=== PATIENT | female | born 1985 | race Caucasian/White ===

== ENCOUNTER 2020-03-08 20:32 | Emergency (ER) | payer OTHER, SELFPAY ==
--- NOTE | ~2020-03-08 | XR_ITS ---
o XR finger 2nd LT min 2V 03/08/2020 20:59 Indication: Left second finger pain Procedure: 4 views left second finger Comparison: No prior studies for comparison. Findings: There is a tuft fracture left second distal phalanx. No other fracture. Mild soft tissue sw elling. No foreign bodies. Impression: 1: Tuft fracture left second distal phalanx. Reviewed, dictated and finalized at location A. Impression: 1: Tuft fracture left second distal phalanx.
[2020-03-08 20:34] VITALS: BP 153/106; PULSE 83; RESP 18; TEMP 37; O2SAT 99
--- NOTE | 2020-03-08 20:48 | ED.UPPEXIN ---
HPI - Extremity Injury (Upper) General Chief Complaint: Extremity Injury, Upper Stated Complaint: L INDEX FINGER LAC Time Seen by Provider: 03/08/20 20:42 Source: patient History of Present Illness HPI narrative: The car door closed ON the terminal phalanx of the left index 11 AM today. Related Data Allergies Allergy/AdvReac Type Severity Reaction Status Date / Time latex Allergy Verified 04/23/13 17:44 morphine Allergy Verified 04/23/13 17:44 Penicillins Allergy Verified 04/23/13 17:44 Review of Systems Review of Systems: Narrative: CONSTITUTIONAL: Denies fever, chills, or sweats. EYES: Denies visual changes, redness, or discharge. ENT: Denies rhinorrhea, congestion, sore throat, or otalgia. CARDIOVASCULAR: Denies chest pain, palpitations, or edema. RESPIRATORY: Denies cough or dyspnea. GASTROINTESTINAL: Denies abdominal pain, nausea, vomiting, or diarrhea. GENITOURINARY: Denies dysuria or hematuria. SKIN: Denies rash or itching. MUSCULOSKELETAL: Denies back pain, joint pain, or myalgia. NEUROLOGIC: Denies headache, numbness, or weakness. PSYCHIATRIC: Denies anxiety or depression. Exam Narrative: Exam Narrative: General appearance: Well-developed, well-nourished Skin: Normal color. Left index showed swelling, bruising of the terminal phalanX, intact nail Head: Normocephalic, nontraumatic Abdomen: Soft, nontender, no organomegaly, quiet bowel sounds Vascular: Normal peripheral pulses, normal capillary refill. Musculoskeletal: Normal range of motion, nontender back Neurologic: Alert and oriented ?3, [employer]ING [employer] is normal as tested, no gross motor deficit Course Course Emergency Course: Stable Vital Signs Vital signs: Vital Signs Temperature 37.0 C 03/08/20 20:34 Pulse Rate 83 03/08/20 20:34 Respiratory Rate 18 03/08/20 20:34 Blood Pressure 153/106 H 03/08/20 20:34 Pulse Oximetry 99 03/08/20 20:34 Temperature 37.0 C 03/08/20 20:34 Pulse Rate 83 03/08/20 20:34 Respiratory Rate 18 03/08/20 20:34 Blood Pressure 153/106 H 03/08/20 20:34 Pulse Oximetry 99 03/08/20 20:34 MDM - Extremity Injury (Upper) MDM Narrative Medical decision making narrative: Terminal phalanx fracture/hematoma is my concern. X-ray ordered. Ibuprofen 800 mg plus Jackson 325 ordered. Further plan to follow Critical Care Time Critical Care Time Critical Care Time: No Discharge Plan Discharge Clinical Impression: Finger fracture, left Qualifiers: Encounter type: initial encounter Finger: index finger Fracture type: closed Phalanx: distal Fracture alignment: nondisplaced Qualified Code(s): S62.661A - Nondisplaced fracture of distal phalanx of left index finger, initial encounter for closed fracture Patient Disposition: Home, Self-Care Condition: Stable Instructions: Finger Fracture (ED) Additional Instructions: Return if symptoms are worsening , call Dr. Kenny for appointment, take Tylenol as as needed for aches and pain, continue home medications. Prescriptions: New hydrocodone-acetaminophen [Jackson] 5-325 mg tablet 1 tablet PO Q6H PRN (Reason: pain) Qty: 14 RF: 0 Follow-up/Referrals: PHYSICIAN,TOP CUTTER [Primary Care Provider] - Jayme Kenny MD [Physician] - 03/10/20
[2020-03-08 21:37] VITALS: BP 153/93; PULSE 88; RESP 20; TEMP 37.2; O2SAT 97
[2020-03-08] MEDS: IBUPROFEN 400 MG TABLET 800 MG PO (21:39)
== END 2020-03-08 21:52 | disposition home or self-care (01) ==
PROVIDERS: Emergency Provider Emergency Medicine
DX: S62.631A Displaced fracture of distal phalanx of left index finger, initial encounter for closed fracture (principal); W23.0XXA Caught, crushed, jammed, or pinched between moving objects, initial encounter
CPT/HCPCS: 29130; 73140; 99284; A9270

== ENCOUNTER 2020-04-01 00:55 | Emergency (ER) | payer OTHER, SELFPAY ==
--- NOTE | ~2020-04-01 | CT_ITS ---
EXAMINATION: CT abdomen pelvis w con EXAM DATE: 04/01/2020 05:21 INDICATION: Abdominal pain, intractable vomiting. TECHNIQUE: Spiral CT of the abdomen and pelvis was performed following intravenous injection of 100 m L Omnipaque 350. Axial, coronal and sagittal images were reviewed. The dose-length product (DLP) fo r this examination was 852.53 mGy-cm. The exposure was tailored according to patient size (auto mA e xposure control), and iterative reconstruction (ASIR) was used as additional dose reduction technique . There is no prior study for comparison. FINDINGS: The liver, spleen, adrenal glands and pancreas are unremarkable. Gallbladder is unremarkab le. No biliary obstruction. Portal and splenic veins are patent. Kidneys enhance symmetrically. T here is no hydronephrosis. There is a right renal cyst measuring 1.7 cm. The uterus is anteverted an d morphologically normal. Small amount of free pelvic fluid probably from recently ruptured physiolog ic cyst. The bladder is unremarkable. There is no retroperitoneal or pelvic lymphadenopathy. The appendix is normal. The stomach and small bowel are unremarkable. There is expected amount of c olonic stool. No free intraperitoneal gas. The heart is normal in size. There are no pericardial or pleural effusions. The lung bases are unremarkable. Bilateral L5 spondylolysis with a few emiliano meters anterolisthesis L5 on S1. IMPRESSION: 1. No acute intra-abdominal findings. 2. L5 spondylolysis, grade 1 anterolisthesis. Reviewed, dictated and finalized at location A.
[2020-04-01 01:28] VITALS: BP 175/92; PULSE 72; RESP 22; TEMP 37.3; O2SAT 99
[2020-04-01 01:53] LABS: Basophils Percent Auto 0.1 % (0.2-1.2); Hemoglobin 14.3 g/dL (12.0-15.0); Immature Granulocyte Absolute 0.03 K/mm3 (0.00-0.031); Immature Granulocyte Percent A 0.4 % (0-0.5); Lymphocytes Absolute Auto 1.49 K/mm3 (0.9-3.2); Lymphocytes Percent Auto 17.5 % (18.3-44.2); Mean Corpuscular HGB Conc 35.8 g/dl (32-36); Mean Corpuscular Hemoglobin 32.5 pg (26-34); Mean Corpuscular Volume 90.9 fl (80-100); Mean Platelet Volume 10.6 fl (7.4-10.4); Monocytes Percent Auto 11.2 % (2.6-8.5); Neutrophils Percent Auto 70.8 % (45.5-73.1); Platelet Count Result 271 k/mm3 (150-375); White Blood Count 8.5 K/mm3 (4.5-10.0)
[2020-04-01 02:09] LABS: Alanine Aminotransferase 20 U/L (4-35); Albumin Level 4.9 g/dL (3.5-5.1); Alkaline Phosphatase 71 U/L (38-126); Anion Gap 13 mmol/L (8-16); Aspartate Amino Transferase 39 U/L (14-36); Bilirubin,Total 0.6 mg/dL (0.2-1.3); Blood Urea Nitrogen 13 mg/dL (7-17); Calcium 9.8 mg/dL (8.4-10.2); Carbon Dioxide 23 mmol/L (22-30); Chloride 101 mmol/L (98-107); Estimated CRCL calculation 86 ml/min; Estimated Glomerular Filt Rate > 60; Glucose 121 mg/dL (65-105); Lipase 55 U/L (23-300); Potassium 3.1 mmol/L (3.4-5.0); Sodium 137 mmol/L (137-145)
[2020-04-01] MEDS: ONDANSETRON INJ 4 MG/2 ML VIAL IV PUSH (03:39)
[2020-04-01] MEDS: SODIUM CHLORIDE 0.9% IV 1,000 ML 999 ML IV CONT (03:39)
--- NOTE | 2020-04-01 03:39 | ED.ABDPAIN ---
HPI - Abdominal Pain General Chief Complaint: Abdominal Pain Stated Complaint: n/v abd pain Time Seen by Provider: 04/01/20 03:37 Source: patient Mode of arrival: ambulatory Limitations: no limitations History of Present Illness HPI narrative: Patient is a 35-year-old female with a history of hypertension, irritable bowel syndrome who presents for evaluation of abdominal pain. Patient reports a 72-hour history of worsening abdominal pain, located throughout her abdomen described as sharp, aching in nature, intermittently stabbing in nature with radiation to her back. Patient reports numerous episodes of nonbloody, nonbilious emesis. She reports decreased oral intake over the past 72 hours. She reports decreased urination due to dehydration. Patient states she has never had abdominal pain like this before. She does report some diarrhea without blood present or mucus. Related Data Allergies Allergy/AdvReac Type Severity Reaction Status Date / Time latex Allergy Rash Verified 03/08/20 21:43 morphine Allergy Rash Verified 03/08/20 21:43 Penicillins Allergy Rash Verified 03/08/20 21:43 Review of Systems Review of Systems: Narrative: CONSTITUTIONAL: Denies fever, chills ENT: Denies rhinorrhea, congestion, sore throat, or otalgia. CARDIOVASCULAR: Denies chest pain, palpitations, or edema. RESPIRATORY: Denies cough or dyspnea. GASTROINTESTINAL: Reports abdominal pain, nausea, vomiting and diarrhea GENITOURINARY: Denies dysuria or hematuria. SKIN: Denies rash or itching. MUSCULOSKELETAL: Denies back pain, joint pain, or myalgia. NEUROLOGIC: Denies headache, numbness, or weakness. PSYCHIATRIC: Denies anxiety or depression. [facility] Past Medical History Medical History (Updated 04/01/20 @ 06:56 by Megan Valdez MD) Delivery with history of Hypertension Irritable bowel syndrome Social History Social History (Updated 04/01/20 @ 03:53 by Megan Valdez MD) Smoking status: Current every day smoker Substance use: never Living arrangements: with family Gender identity (if verbalized by the patient): Female Exam Narrative: Exam Narrative: GENERAL: Eyes closed on bed, moaning, uncomfortable appearing HEAD: Normocephalic, atraumatic. EYES: PERRLA and EOMI. ENT: Nares clear, no rhinorrhea or epistaxis. Mucous membranes dry NECK: Supple. CHEST: No respiratory distress, breathing even and non labored HEART: Regular rate, sinus rhythm ABDOMEN:Non distended, tender abdomen throughout, positive guarding EXTREMITIES: Normal range of motion. No edema. SKIN: Warm, dry, no rash. NEURO:No focal deficits. Alert and oriented x3 Course Vital Signs Vital signs: Vital Signs Temperature 37.3 C 04/01/20 01:28 Pulse Rate 72 04/01/20 01:28 Respiratory Rate 22 H 04/01/20 01:28 Blood Pressure 175/92 H 04/01/20 01:28 Pulse Oximetry 99 04/01/20 01:28 Temperature 37.3 C 04/01/20 01:28 Pulse Rate 72 04/01/20 01:28 Respiratory Rate 22 H 04/01/20 01:28 Blood Pressure 175/92 H 04/01/20 01:28 Pulse Oximetry 99 04/01/20 01:28 MDM - Abdominal Pain MDM Narrative Medical decision making narrative: Patient presenting for evaluation of nausea, vomiting, abdominal pain and diarrhea. At the time of assessment, patient is nauseated, was given IV fluids, antiemetic and pain medication with good improvement in her symptoms. Laboratory results show no leukocytosis. No electrolyte derangement. No acute kidney injury. Elevation in lipase, hyperbilirubinemia, transaminitis to be suggestive of acute biliary process or biliary obstruction. I do not feel that urinalysis is consistent with UTI. Patient without any vaginal bleeding or discharge. There is evidence of some free physiologic fluid in the pelvis which may be due to a ruptured cyst. Patient symptoms are not consistent with ovarian torsion. No findings concerning for PID or suprapubic tenderness at the time of reassessment. Patient did have border
[2020-04-01 04:51] LABS: Add Urine Microscopic? YES; Appearance Urine Cloudy (Clear); Bacteria Urine Trace /hpf; Bilirubin Urine Negative (Negative); Blood Urine 1+ (Negative); Color Urine Yellow (Yellow); Glucose Urine UA Negative (Negative); Ketones Urine Trace mg/dL (Negative); Leukocyte Esterase Ur Trace LEU/UL (Negative); Mucus Urine Moderate /lpf; Nitrate Urine Negative (Negative); Protein Urine 1+ mg/dL (Negative); Specific Grav Ur 1.024 (1.001-1.035); Squamous Epithelial Cell Urine Few /hpf (Few); Urobilinogen Urine Negative mg/dL (<2.0)
[2020-04-01] MEDS: POTASSIUM CHLORIDE 20 MEQ PACKET (FOR LIQUID) 40 MEQ PO (06:05)
[2020-04-01] MEDS: METOCLOPRAMIDE HCL INJ 10 MG/2 ML VIAL IV PUSH (06:05)
[2020-04-01 06:55] VITALS: BP 121/93; PULSE 52; RESP 17; O2SAT 93
[2020-04-01 07:08] VITALS: BP 124/86; PULSE 68; RESP 18; O2SAT 97
== END 2020-04-01 07:09 | disposition home or self-care (01) ==
PROVIDERS: Emergency Provider Emergency Medicine
DX: N83.209 Unspecified ovarian cyst, unspecified side (principal); I10 Essential (primary) hypertension; F17.210 Nicotine dependence, cigarettes, uncomplicated
CPT/HCPCS: 36415; 74177; 80053; 81001; 81025; 83690; 85025; 96361; 96374; 96375; 99284; A9270; J1170; J2405; J2765; J3010; J7030; Q9967

== ENCOUNTER 2020-04-01 21:16 | Observation (INO) | payer OTHER, SELFPAY ==
--- NOTE | ~2020-04-01 | XR_ITS ---
XR abdomen/kub 1V 04/01/2020 22:34 INDICATION: Abdomen pain TECHNIQUE: KUB COMPARISON: None FINDINGS: Bowel gas pattern is normal. There is no evidence of free air, mass, organomegaly, ascites or obstruction. No abnormal calculi are seen. The bones appear intact. IMPRESSION: 1: No acute abdominal abnormality identified. Reviewed, dictated and finalized at location A.
[2020-04-01 21:19] VITALS: BP 186/93; PULSE 67; RESP 16; TEMP 37.1; O2SAT 99
--- NOTE | 2020-04-01 21:34 | ED.NAVMDI ---
HPI - Nausea/Vomiting/Diarrhea General Chief complaint: Nausea/Vomiting/Diarrhea Stated complaint: abdominal pain Time Seen by Provider: 04/01/20 21:34 Source: patient Mode of arrival: ambulatory Limitations: no limitations History of Present Illness HPI Narrative: Patient is a 35-year-old female who returns to the emergency department after I evaluated the patient yesterday for abdominal pain, vomiting and diarrhea. Patient reports recurrence of nausea with multiple episodes of emesis throughout the day today. She continues to report burning abdominal pain in the upper abdomen. Patient states she was seen at an urgent care today and then transferred over to [facility] where she sat in the waiting room and had many people in front of her, that she left that hospital to come to this facility. Patient denies any fever, chills, cough, chest pain or shortness of breath. She states her symptoms are the same as yesterday. Pt does endorse daily marijuana use for many years. Related Data Allergies Allergy/AdvReac Type Severity Reaction Status Date / Time latex Allergy Rash Verified 03/08/20 21:43 morphine Allergy Rash Verified 03/08/20 21:43 Penicillins Allergy Rash Verified 03/08/20 21:43 Review of Systems Review of Systems: Narrative: CONSTITUTIONAL: Denies fever, chills, or sweats. CARDIOVASCULAR: Denies chest pain, palpitations, or edema. RESPIRATORY: Denies cough or dyspnea. GASTROINTESTINAL: Reports abdominal pain, nausea, vomiting and diarrhea GENITOURINARY: Denies dysuria or hematuria. SKIN: Denies rash or itching. MUSCULOSKELETAL: Denies back pain, joint pain, or myalgia. NEUROLOGIC: Denies headache, numbness, or weakness. [facility] Past Medical History Medical History Delivery with history of Hypertension Irritable bowel syndrome Social History Social History (Updated 04/01/20 @ 21:44 by Megan Valdez MD) Smoking status: Current every day smoker Substance use type: marijuana Gender identity (if verbalized by the patient): Female Exam Narrative: Exam Narrative: GENERAL: Awake, alert, ill-appearing HEAD: Normocephalic, atraumatic. EYES: PERRLA and EOMI. ENT: Nares clear, no rhinorrhea or epistaxis. Mucous membranes dry NECK: Supple. CHEST: No respiratory distress, breathing even and non labored HEART: Regular rate, sinus rhythm ABDOMEN:Non distended, tender throughout abdomen, no rebound, no guarding, nonrigid EXTREMITIES: Normal range of motion. No edema. SKIN: Warm, dry, no rash. NEURO:No focal deficits. Alert and oriented x3 Course Vital Signs Vital signs: Vital Signs Temperature 37.1 C 04/01/20 21:19 Pulse Rate 67 04/01/20 21:19 Respiratory Rate 16 04/01/20 21:19 Blood Pressure 186/93 H 04/01/20 21:19 Pulse Oximetry 99 04/01/20 21:19 Temperature 37.1 C 04/01/20 21:19 Pulse Rate 67 04/01/20 21:19 Respiratory Rate 16 04/01/20 21:19 Blood Pressure 186/93 H 04/01/20 21:19 Pulse Oximetry 99 04/01/20 21:19 MDM - Nausea/Vomiting/Diarrhea MDM Narrative Medical decision making narrative: Patient with recurrent nausea, vomiting, abdominal pain. Her abdominal exam continues to be benign without any focal tenderness. Laboratory results just notable for hypokalemia, patient was given able to tolerate some oral potassium and I discussed sending the patient home with GI follow-up, the patient states she has too much pain and nausea to go home and states she will come right back to the emergency department. I consulted Dr. Kam Miller who will see the patient tomorrow, perhaps if we can continue IV fluids, symptom management without the use of opiate management, he will be able to evaluate the patient and possibly arrange any further work-up. I did discuss the patient's marijuana use with the patient in regards to her symptoms and that may be an exacerbating factor or possible cause. Additional CT s
[2020-04-01] MEDS: METOCLOPRAMIDE HCL INJ 10 MG/2 ML VIAL IV PUSH (21:52)
[2020-04-01] MEDS: DICYCLOMINE HCL INJ 20 MG/2 ML VIAL IM (21:52)
[2020-04-01] MEDS: diphenhydrAMINE HCl INJ 50 MG/ML VIAL 25 MG IV PUSH (21:52)
[2020-04-01] MEDS: SODIUM CHLORIDE 0.9% IV 2,000 ML 999 ML IV CONT (21:53)
--- NOTE | 2020-04-01 22:02 | PC.NURSE ---
pt requesting dilaudid at this time. pt states, that is the only thing that works immediately.
[2020-04-01 22:05] LABS: Basophils Percent Auto 0.1 % (0.2-1.2); Hematocrit 38.5 % (37.0-47.0); Hemoglobin 13.4 g/dL (12.0-15.0); Immature Granulocyte Absolute 0.04 K/mm3 (0.00-0.031); Immature Granulocyte Percent A 0.4 % (0-0.5); Lymphocytes Absolute Auto 1.08 K/mm3 (0.9-3.2); Lymphocytes Percent Auto 11.5 % (18.3-44.2); Mean Corpuscular HGB Conc 34.8 g/dl (32-36); Mean Corpuscular Hemoglobin 31.9 pg (26-34); Mean Corpuscular Volume 91.7 fl (80-100); Mean Platelet Volume 10.5 fl (7.4-10.4); Monocytes Absolute Auto 0.6 K/mm3 (0.1-0.6); Monocytes Percent Auto 6.1 % (2.6-8.5); Neutrophils Absolute Auto 7.7 K/mm3 (1.3-6.7); Neutrophils Percent Auto 81.9 % (45.5-73.1); Platelet Count Result 226 k/mm3 (150-375); Red Cell Distribution Width 12.1 % (11.5-14.5); White Blood Count 9.4 K/mm3 (4.5-10.0)
[2020-04-01 22:16] LABS: Alanine Aminotransferase 19 U/L (4-35); Albumin Level 4.5 g/dL (3.5-5.1); Alkaline Phosphatase 67 U/L (38-126); Anion Gap 10 mmol/L (8-16); Aspartate Amino Transferase 33 U/L (14-36); Bilirubin,Total 0.4 mg/dL (0.2-1.3); Blood Urea Nitrogen 12 mg/dL (7-17); Calcium 8.6 mg/dL (8.4-10.2); Carbon Dioxide 24 mmol/L (22-30); Chloride 104 mmol/L (98-107); Estimated CRCL calculation 96 ml/min; Estimated Glomerular Filt Rate > 60; Glucose 109 mg/dL (65-105); Lipase 42 U/L (23-300); Sodium 138 mmol/L (137-145)
--- NOTE | 2020-04-01 22:37 | PC.NURSE ---
pt arrived into triage with an iv in place, attached to a litre bag of NS stated that she had it placed at [facility], in [facility]. call placed to inform [facility]
[2020-04-01] MEDS: POTASSIUM CHLORIDE 20 MEQ TABLET 40 MEQ PO (22:42)
--- NOTE | 2020-04-01 22:45 | PC.NURSE ---
XR tech states pt felt like she was dizzy and going to pass out from the pain in XR. pt hooked up to monitor, VS stable, pt looks to be in NAD. pt requesting dilaudid again at this time stating this will make her nausea and pain go away. aware.
--- NOTE | 2020-04-01 23:10 | PC.NURSE ---
report received at this time. pt resting on stretcher, pt in NAD, RR even and unlabored. call light in reach, pt remains hooked up to monitor.
--- NOTE | 2020-04-01 23:57 | PC.NURSE ---
pt ambulatory to restroom at this time.
[2020-04-02] VITALS (10 sets, daily range): BP systolic 131–167; BP diastolic 82–104; PULSE 45–62; RESP 17–24; TEMP 36.8–37.4; O2SAT 94–100; BMI 30.6
--- NOTE | 2020-04-02 00:11 | PC.NURSE ---
eating ice chips without difficulty.
[2020-04-02] MEDS: ONDANSETRON INJ 4 MG/2 ML VIAL IV PUSH ×3 (01:32→09:06)
--- NOTE | 2020-04-02 01:54 | ADMGEN ---
This patient, Jayy Kwan, was admitted to 3 [facility] Surg Room 320-01. Patient/family oriented to hospital policies and general routines including ID bracelet, bed and alarms, visiting hours, pain management, procedures, bathroom and other care routines, personal items, smoking policy, room service/diet, and visiting hours. Valuables list has been completed. Information on how to activate the Rapid Response Team has been discussed. Patient/Family are encouraged to report perceived risks to care and to ask questions if they do not understand what they are told or what they should do.
[2020-04-02] MEDS: SODIUM CHLORIDE 0.9% IV 1,000 ML 125 ML IV CONT ×2 (02:01→23:58)
[2020-04-02] MEDS: DICYCLOMINE HCL INJ 20 MG/2 ML VIAL IM (05:51)
[2020-04-02] MEDS: PROMETHAZINE HCL 25 MG/ML AMPUL IM (06:46)
[2020-04-02] MEDS: FAMOTIDINE 20 MG/2 ML VIAL IV PUSH (09:09)
--- NOTE | 2020-04-02 09:45 | PM.IMHP ---
H&P: HPI History of Present Illness Date/Time: 04/02/20 09:30 Chief complaint: Intractable abdominal pain, nausea Narrative: The supervising physician for this history and physical is Dr Ronna Posadas. Ms. Kwan is a 35yo F who presented to the ED for evaluation of intractable nausea/vomiting with abdominal pain that began 4 days ago. In the last 4 days, she has visited [facility], then our ED where she was discharged. She then presented to urgent care yesterday who referred her to [facility] ED where she was seen and left AMA. She re-presented to our ED yesterday with IV access still in and a blood pressure cuff on her arm from [facility]. She tells me she has been vomiting with intense nausea for 4 days with associated diffuse abdominal pain. She reports she has never had these symptoms before. She reports hot showers and baths help her and that she has been practically living in her shower for the last 4 days to get some relief. She denies chest pain but endorses heartburn. Denies shortness of breath, cough, fevers or chills. She does report using marijuana multiple times daily for many years. CT abdomen/pelvis was performed during her first ED visit yesterday and showed no acute findings that would explain her current symptoms. Routine labs show hypokalemia. Dr Humphrey, GI, was consulted. She was admitted to the hospitalist service for observation. Review of Systems Review of Systems: Narrative: She reports 8/10 diffuse abdominal pain at present. She reports nausea and dry heaves once during my encounter. She reports heart burn. Twelve systems were reviewed with pertinent positives and negatives as per HPI. [facility] Past Medical History Medical History (Updated 04/02/20 @ 16:39 by Corry Singleton PA-C) Irritable bowel syndrome Marijuana abuse Surgical History Surgical History (Updated 04/02/20 @ 10:03 by Corry Singleton PA-C) History of 2005 Family History Family History Other Patient denies significant medical history Social History Social History (Updated 04/02/20 @ 10:04 by Corry Singleton PA-C) Social History: Ms. Kwan lives at home in [place] with her sister and sister's daughter. She is not working currently. She reports she rarely uses alcohol less than once per week. She smokes marijuana multiple times daily for the last several years. She does not smoke cigarettes. She does not have a primary care provider. She is full code status. Smoking status: Never smoker Alcohol intake: current Substance use: current Substance use type: marijuana Gender identity (if verbalized by the patient): Female Spiritual care concerns: No Meds Home Medications and Allergies Home Medications Medication Instructions Recorded Confirmed Type metoclopramide HCl [Reglan] 10 mg PO Q6H PRN #14 tablet 04/01/20 04/02/20 Rx albuterol sulfate 2 puff INHALATION Q4-6H PRN 04/02/20 04/02/20 History fluticasone propionate 2 spray INTRANASAL DAILY PRN 04/02/20 04/02/20 History loratadine [Claritin] 10 mg PO DAILY PRN 04/02/20 04/02/20 History Allergies Allergy/AdvReac Type Severity Reaction Status Date / Time latex Allergy Rash Verified 04/02/20 12:15 morphine Allergy Rash Verified 04/02/20 12:15 Penicillins Allergy Rash Verified 04/02/20 12:15 Vital Signs Vital Signs - 24 hr 04/01/20 21:19 04/02/20 01:34 04/02/20 01:40 Temperature 98.7 F 98.3 F Pulse Rate 67 55 L 53 L Respiratory Rate 16 17 18 Blood Pressure 186/93 H 166/104 H 167/95 H Pulse Oximetry 99 98 99 04/02/20 06:00 Temperature 98.3 F Pulse Rate 47 L Respiratory Rate 18 Blood Pressure 131/88 Pulse Oximetry 98 Exam Narrative: Exam Narrative: Patient is anxious and agitated and declines physical exam at this time. During my encounter she gets up out of bed, walking to the restroom. Upon my request to sit for a physical exam, she continues to walk
[2020-04-02 10:43] LABS: Anion Gap 9 mmol/L (8-16); Blood Urea Nitrogen 12 mg/dL (7-17); Calcium 8.5 mg/dL (8.4-10.2); Carbon Dioxide 23 mmol/L (22-30); Chloride 105 mmol/L (98-107); Estimated CRCL calculation 111 ml/min; Estimated Glomerular Filt Rate > 60; Glucose 103 mg/dL (65-105); Magnesium 2.2 mg/dL (1.6-2.3); Potassium 3.1 mmol/L (3.4-5.0); Sodium 137 mmol/L (137-145)
[2020-04-02 12:21] LABS: Add Urine Microscopic? YES; Appearance Urine Clear (Clear); Bacteria Urine Trace /hpf; Bilirubin Urine Negative (Negative); Blood Urine Negative (Negative); Color Urine Yellow (Yellow); Glucose Urine UA Negative (Negative); Ketones Urine 1+ mg/dL (Negative); Leukocyte Esterase Ur Negative LEU/UL (Negative); Mucus Urine Heavy /lpf; Nitrate Urine Negative (Negative); Protein Urine 1+ mg/dL (Negative); RBC Urine 0-2 /hpf (0-2); Squamous Epithelial Cell Urine Rare /hpf (Few); Urobilinogen Urine Negative mg/dL (<2.0); WBC Urine 0-3 /hpf
--- NOTE | 2020-04-02 12:24 | WPDANESEPPF ---
Anes - Initial Pre Proc Eval Procedure: Operation Date: 04/02/20 13:15 Proposed Procedures p Esophagogastroduodenoscopy - Preston Ricketts MD Date/Time: 04/02/20 12:24 Surgeon: BOUBACAR Cantor Pre Op Diagnosis: Intractable abdominal pain, nausea Patient Data Age: 35 Gender: F Height: 1.7 m Weight: 88.7 kg Last Vital Signs Temp 36.8 C 04/02/20 06:00 Pulse 47 L 04/02/20 06:00 Resp 18 04/02/20 06:00 BP 131/88 04/02/20 06:00 Pulse Ox 98 04/02/20 12:18 Allergies Allergy/AdvReac Type Severity Reaction Status Date / Time latex Allergy Rash Verified 04/02/20 12:15 morphine Allergy Rash Verified 04/02/20 12:15 Penicillins Allergy Rash Verified 04/02/20 12:15 Home Medications Medication Instructions Recorded Confirmed Type metoclopramide HCl [Reglan] 10 mg PO Q6H PRN #14 tablet 04/01/20 04/02/20 Rx albuterol sulfate 2 puff INHALATION Q4-6H PRN 04/02/20 04/02/20 History fluticasone propionate 2 spray INTRANASAL DAILY PRN 04/02/20 04/02/20 History loratadine [Claritin] 10 mg PO DAILY PRN 04/02/20 04/02/20 History Laboratory Tests 04/01/20 04/01/20 04/02/20 21:56 21:56 10:19 WBC 9.4 K/mm3 K/mm3 (4.5-10.0) RBC 4.20 M/mm3 M/mm3 (4.2-5.4) Hgb 13.4 g/dL g/dL (12.0-15.0) Hct 38.5 % % (37.0-47.0) MCV 91.7 fl fl (80-100) MCH 31.9 pg pg (26-34) MCHC 34.8 g/dl g/dl (32-36) RDW 12.1 % % (11.5-14.5) Plt Count 226 k/mm3 k/mm3 (150-375) MPV 10.5 fl H fl (7.4-10.4) Immature Gran % (Auto) 0.4 % % (0-0.5) Neut % (Auto) 81.9 % H % (45.5-73.1) Lymph % (Auto) 11.5 % L % (18.3-44.2) [place] % (Auto) 6.1 % % (2.6-8.5) Eos % (Auto) 0.0 % % (0-4.4) Baso % (Auto) 0.1 % L % (0.2-1.2) Lymph # (Auto) 1.08 K/mm3 K/mm3 (0.9-3.2) [place] # (Auto) 0.6 K/mm3 K/mm3 (0.1-0.6) Eos # (Auto) 0.0 K/mm3 K/mm3 (0-0.3) Baso # (Auto) 0.0 K/mm3 K/mm3 (0.0-0.1) Abs Immat Gran (auto) 0.04 K/mm3 H K/mm3 (0.00-0.031) Absolute Neuts (auto) 7.7 K/mm3 H K/mm3 (1.3-6.7) Absolute Nucleated RBC 0.0 K/mm3 K/mm3 (0.0-0.012) Nucleated RBC % 0.0 % % (0.0-0.2) Sodium 138 mmol/L mmol/L 137 mmol/L mmol/L (137-145) (137-145) Potassium 3.0 mmol/L L mmol/L 3.1 mmol/L L mmol/L (3.4-5.0) (3.4-5.0) Chloride 104 mmol/L mmol/L 105 mmol/L mmol/L (98-107) (98-107) Carbon Dioxide 24 mmol/L mmol/L 23 mmol/L mmol/L (22-30) (22-30) Anion Gap 10 mmol/L mmol/L 9 mmol/L mmol/L (8-16) (8-16) BUN 12 mg/dL mg/dL 12 mg/dL mg/dL (7-17) (7-17) Creatinine 0.80 mg/dL mg/dL 0.70 mg/dL mg/dL (0.7-1.0) (0.7-1.0) Estim Creat Clear Calc 96 ml/min ml/min 111 ml/min ml/min Estimated GFR > 60 > 60 (59 - ) (59 - ) Glucose 109 mg/dL H mg/dL 103 mg/dL mg/dL (65-105) (65-105) Calcium 8.6 mg/dL mg/dL 8.5 mg/dL mg/dL (8.4-10.2) (8.4-10.2) Magnesium 2.2 mg/dL mg/dL (1.6-2.3) Total Bilirubin 0.4 mg/dL mg/dL (0.2-1.3) AST 33 U/L U/L (14-36) ALT 19 U/L U/L (4-35) Alkaline Phosphatase 67 U/L U/L (38-126) Total Protein 8.0 g/dL g/dL (6.3-8.2) Albumin 4.5 g/dL g/dL (3.5-5.1) Lipase 42 U/L U/L (23-300) Urine Color Urine Appearance Urine pH Ur Specific [place] Urine Protein Urine Glucose (UA) Urine Ketones Ur Blood (Man) Urine Nitrate Urine Bilirubin Urine Urobilinogen Leukocyte Esterase Rfl Urine Opiates Screen Urine Methadone Screen Ur Barbiturates Screen Ur Phencyclidine Scrn Ur Amphetamin
[2020-04-02 12:27] LABS: Specific Grav Ur 1.033 (1.001-1.035)
[2020-04-02 12:36] LABS: Amphetamine Screen Urine Negative (Negative); Barbiturate Screen Urine Negative (Negative); Benzodiazepines Screen Urine Negative (Negative); Cannabinoid Screen Urine Positive (Negative); Cocaine Screen Urine Negative (Negative); Methadone Screen Urine Negative (Negative); Opiate Screen Urine Negative (Negative); Phencyclidine Screen Urine Negative (Negative)
[2020-04-02] MEDS: LACTATED RINGERS 1,000 ML 150 ML IV CONT (12:45)
--- NOTE | 2020-04-02 13:00 | WPDGICN ---
Assessment and Plan Assessment and plan (1) Nausea & vomiting: Code(s): R11.2 - Nausea with vomiting, unspecified Status: Acute Assessment and Plan: ongoing for 4 days, blood work and imaging unremarkable. she is still quite nauseous. I wonder if could be related to chronic use of marijuana however she denies similar symptoms previously. will proceed with egd to assess if esophagitis, ulcers, etc (2) Dehydration: Code(s): E86.0 - Dehydration Status: Acute Assessment and Plan: supportive care, on fluids (3) Acute hypokalemia: Code(s): E87.6 - Hypokalemia Status: Acute Assessment and Plan: treated (4) Marijuana abuse: Code(s): F12.10 - Cannabis abuse, uncomplicated Status: Acute Assessment and Plan: ? cyclic vomiting, continue with antiemetics GI Consult Note Consult date/time: 04/02/20 13:00 Reason for consult: intractable nausea and vomiting HPI: Jayy Kwan is a 35 year old female daily marijuana user since she was 16 yo with 4 days of new onset of intractable nausea/vomiting with epigastric pain. She has been in [facility], then here where she was discharged. CT a/p was normal, also blood work. Then she went to urgent care and finally came here again. She has been taking hot showers since being sick. She denies nausea or similar problems previously. Also has some diarrhea. Never had scopes. Review of Systems Constitutional: Constitutional: Denies chills and Denies headache(s) Eyes: Eyes: Denies blurry vision ENT: Reports Normal hearing present, Denies headache(s) and Denies neck pain Cardiovascular: Cardiovascular: Denies chest pain and Denies dyspnea Respiratory: Respiratory: Denies dyspnea Gastrointestinal: Gastrointestinal: Reports abdominal pain, Reports nausea and Reports vomiting Genitourinary: Genitourinary: Denies dysuria Musculoskeletal: Musculoskeletal: Denies neck pain Integumentary/Breasts: Skin/Breast: Denies dry skin Neurologic: Reports Normal hearing present, Denies headache(s) and Denies weakness Psychiatric: Psychiatric: Denies anxiety Endocrine: Endocrine: Denies change in body appearance Hematologic/Lymphatic: Hematologic/Lymphatic: Denies easy bleeding Allergic/Immunologic: Allergic/Immunologic: Denies urticaria PMFSH Past Medical History Medical History (Updated 04/02/20 @ 13:03 by Preston Ricketts MD) Irritable bowel syndrome Marijuana abuse Surgical History Surgical History (Updated 04/02/20 @ 10:03 by Corry Singleton PA-C) History of 2005 Family History Family History Other Patient denies significant medical history Social History Social History (Updated 04/02/20 @ 10:04 by Corry Singleton PA-C) Social History: Ms. Kwan lives at home in [place] with her sister and sister's daughter. She is not working currently. She reports she rarely uses alcohol less than once per week. She smokes marijuana multiple times daily for the last several years. She does not smoke cigarettes. She does not have a primary care provider. She is full code status. Smoking status: Never smoker Alcohol intake: current Substance use: current Substance use type: marijuana Gender identity (if verbalized by the patient): Female Spiritual care concerns: No Meds Home Medications and Allergies Home Medications Medication Instructions Recorded Confirmed Type metoclopramide HCl [Reglan] 10 mg PO Q6H PRN #14 tablet 04/01/20 04/02/20 Rx albuterol sulfate 2 puff INHALATION Q4-6H PRN 04/02/20 04/02/20 History fluticasone propionate 2 spray INTRANASAL DAILY PRN 04/02/20 04/02/20 History loratadine [Claritin] 10 mg PO DAILY PRN 04/02/20 04/02/20 History Allergies Allergy/AdvReac Type Severity Reaction Status Date / Time latex Allergy Rash Verified 04/02/20 12:15 morphine Allergy Rash Verifie
[2020-04-02] MEDS: SUCRALFATE SUSP 100 MG/ML 10 ML UDC 1000 MG PO ×2 (16:41→21:51)
[2020-04-02] MEDS: PROCHLORPERAZINE EDISYLATE 10 MG/2 ML VIAL IV PUSH ×2 (16:42→21:51)
[2020-04-02] MEDS: PANTOPRAZOLE SODIUM IV 40 MG VIAL IV PUSH (21:51)
[2020-04-03] MEDS: PROCHLORPERAZINE EDISYLATE 10 MG/2 ML VIAL IV PUSH ×3 (04:15→16:40)
[2020-04-03] MEDS: SUCRALFATE SUSP 100 MG/ML 10 ML UDC 1000 MG PO ×3 (05:27→16:40)
[2020-04-03 06:00] VITALS: BP 141/92; PULSE 49; RESP 18; TEMP 36.6; O2SAT 97
[2020-04-03 07:36] LABS: Anion Gap 8 mmol/L (8-16); Blood Urea Nitrogen 8 mg/dL (7-17); Calcium 8.1 mg/dL (8.4-10.2); Carbon Dioxide 24 mmol/L (22-30); Chloride 107 mmol/L (98-107); Estimated CRCL calculation 127 ml/min; Estimated Glomerular Filt Rate > 60; Glucose 92 mg/dL (65-105); Magnesium 2.3 mg/dL (1.6-2.3); Potassium 3.2 mmol/L (3.4-5.0); Sodium 139 mmol/L (137-145)
--- NOTE | 2020-04-03 07:44 | P.PNAN_ITS ---
Anes - Prog Note Post-Op Date/Time: 04/03/20 07:44 Cardiovascular status: normal Respiratory status: normal Airway patency: baseline Mental status: baseline Post-Op hydration status: normal Vital Signs: Last Vital Signs Temp 36.6 C 04/03/20 06:00 Pulse 49 L 04/03/20 06:00 Resp 18 04/03/20 06:00 BP 141/92 H 04/03/20 06:00 Pulse Ox 97 04/03/20 06:00 Pain Score (VAS): 0/10. Patient resting in bed at time of assessment, appears comfortable. Spoke with RN at time of assessment, no issues or concerns addressed. I/O: Intake & Output 04/02/20 04/02/20 04/03/20 15:59 23:59 07:59 Intake Total 1550 720 Output Total 1050 Balance 1550 -1050 720 Laboratory Tests 04/01/20 21:56 04/03/20 07:02 04/02/20 04/02/20 04/02/20 10:19 11:59 11:59 Sodium 137 Potassium 3.1 L Chloride 105 Carbon Dioxide 23 Anion Gap 9 BUN 12 Creatinine 0.70 Estim Creat Clear Calc 111 Estimated GFR > 60 Glucose 103 Calcium 8.5 Magnesium 2.2 Urine Color Yellow Urine Appearance Clear Urine pH 6.0 Ur Specific [place] 1.033 Urine Protein 1+ H Urine Glucose (UA) Negative Urine Ketones 1+ H Ur Blood (Man) Negative Urine Nitrate Negative Urine Bilirubin Negative Urine Urobilinogen Negative Leukocyte Esterase Rfl Negative Urine RBC 0-2 Urine WBC 0-3 Ur Squamous Epith Cells Rare Urine Bacteria Trace Urine Mucus Heavy H Urine Opiates Screen Negative Urine Methadone Screen Negative Ur Barbiturates Screen Negative Ur Phencyclidine Scrn Negative Ur Amphetamine Screen Negative U Benzodiazepines Scrn Negative Urine Cocaine Screen Negative U Cannabinoids Screen Positive A 04/03/20 07:02 Sodium 139 Potassium 3.2 L Chloride 107 Carbon Dioxide 24 Anion Gap 8 BUN 8 Creatinine 0.60 L Estim Creat Clear Calc 127 Estimated GFR > 60 Glucose 92 Calcium 8.1 L Magnesium 2.3 Urine Color Urine Appearance Urine pH Ur Specific [place] Urine Protein Urine Glucose (UA) Urine Ketones Ur Blood (Man) Urine Nitrate Urine Bilirubin Urine Urobilinogen Leukocyte Esterase Rfl Urine RBC Urine WBC Ur Squamous Epith Cells Urine Bacteria Urine Mucus Urine Opiates Screen Urine Methadone Screen Ur Barbiturates Screen Ur Phencyclidine Scrn Ur Amphetamine Screen U Benzodiazepines Scrn Urine Cocaine Screen U Cannabinoids Screen Post-procedural complaints: none Patient Feedback: Patient satisfied with anesthetic care.
[2020-04-03] MEDS: SODIUM CHLORIDE 0.9% IV 1,000 ML 125 ML IV CONT (10:06)
[2020-04-03] MEDS: PANTOPRAZOLE SODIUM IV 40 MG VIAL IV PUSH (10:10)
--- NOTE | 2020-04-03 10:56 | PC.NURSE ---
Patient was very agitated this morning. Upset at physician for diet order. Patient feels that her concerns are being pushed to the side.
[2020-04-03] MEDS: POTASSIUM CHLORIDE 20 MEQ TABLET 40 MEQ PO (11:24)
--- NOTE | 2020-04-03 14:15 | WPDGIPROGNO ---
Progress Note: A&P Assessment and Plan (1) Erosive esophagitis: Code(s): K22.10 - Ulcer of esophagus without bleeding Status: Acute Assessment and Plan: egd showed moderate esophagitis with gastritis and small ulcer in duodenum continue with ppi bid and carafate with meals already doing better she can go home and follow up office in 2-3 weeks may need to repeat egd in 3-4 months to assess for healing (2) Peptic ulcer disease: Code(s): K27.9 - Peptic ulcer, site unspecified, unspecified as acute or chronic, without hemorrhage or perforation Status: Acute Assessment and Plan: on ppi path report still pending (3) Nausea & vomiting: Qualifiers: Vomiting Intractability: intractable Vomiting type: unspecified Qualified Code(s): R11.2 - Nausea with vomiting, unspecified Code(s): R11.2 - Nausea with vomiting, unspecified Status: Acute Assessment and Plan: significantly improved (4) Marijuana abuse: Code(s): F12.10 - Cannabis abuse, uncomplicated Status: Acute (5) Dehydration: Code(s): E86.0 - Dehydration Status: Acute Subjective Date/time seen: 04/03/20 14:15 Interval history: she is feeling better today, was able to sleep without dry heaving and tolerated diet Review of Systems Review of Systems: All systems reviewed & are unremarkable except as noted in HPI and below Exam Const: General: comfortable and no acute distress Other: much comfortable today HENMT: General nose exam: Normal nares present Eyes: General: appearance normal, both eyes and all related structures Neck: Neck: no JVD Resp: Auscultation: clear to auscultation bilaterally Cardio: Rate: regular rate Rhythm: regular rhythm GI: Inspection: non-distended GI Palp: Yes Soft to palpation Skin: General skin exam: normal color Neuro: General: gait normal Speech: normal speech Extrem: General: normal to inspection Psych: Mental Status: mental status grossly normal Objective Data Vital Signs Vital Signs: Vital Signs - 24 hr 04/02/20 22:25 04/03/20 06:00 Temperature 98.6 F 97.8 F Pulse Rate 52 L 49 L Respiratory Rate 18 18 Blood Pressure 153/85 H 141/92 H Pulse Oximetry 98 97 Intake/Output Intake/Output: Intake & Output 03/31/20 04/01/20 04/02/2004/03/20 23:59 23:59 23:59 23:59 Intake Total 3650 2560 Output Total 1350 Balance 2300 2560 Meds/Results Medications: Active Medications Generic Name Dose Route Start Last Admin Trade Name Freq PRN Reason Stop Dose Admin Hydrocodone Bitart/Acetaminophen 1 tab 04/02/20 14:51 04/03/20 11:28 [place] 5-325 Mg PO 1 tab Q4H PRN Administration Pain Rated 6 or Greater Albuterol 2 puff 04/02/20 08:14 Proventil Hfa INHALATION QIDRT PRN Shortness Of Breath Dicyclomine HCl 20 mg 04/02/20 01:01 04/02/20 05:51 Bentyl Inj IM 20 mg Q6H PRN Administration Abdominal Cramping Acetaminophen 1,000 mg in 100 mls @ 400 mls/hr 04/03/20 07:03 Ofirmev 1,000 Mg Ivpb IVPB 04/04/20 07:04 Q6H PRN Pain Rated 5 or Less Lorazepam 0.5 mg 04/02/20 22:00 04/03/20 11:25 Ativan Inj IV PUSH 0.5 mg Q6H PRN Administration Anxiety Pantoprazole Sodium 40 mg 04/02/20 21:00 04/03/20 10:10 Protonix Iv IV PUSH 40 mg Q12HR EDWARD Administration Prochlorperazine Edisylate 10 mg 04/02/20 16:00 04/03/20 10:11 Compazine IV PUSH 10 mg Q6H EDWARD Administration Sucralfate 1,000 mg 04/02/20 16:30 04/03/20 11:31 Carafate PO 1,000 mg ACHS EDWARD Administration Radiology Results: ITS Impressions Abdomen X-Ray 04/01/20 22:41 IMPRESSION: 1: No acute abdominal abnormality identified. Labs Labs: Laboratory Results - last 24 hr 04/03/20 07:02 Sodium 139 Potassium 3.2 L Chloride 107 Carbon Dioxide 24 Anion Gap 8 BUN 8 Creatinine 0.60 L Estim Creat Clear Calc 127 Estimated GFR >
--- NOTE | 2020-04-03 16:22 | PM.DS ---
DS: Admitting Diagnosis Admitting Diagnosis Admitting Diagnosis: Intractable abdominal pain, nausea DS: Discharge Diagnosis Discharge Diagnosis (1) Nausea & vomiting: Qualifiers: Vomiting Intractability: intractable Vomiting type: unspecified Qualified Code(s): R11.2 - Nausea with vomiting, unspecified Code(s): R11.2 - Nausea with vomiting, unspecified Status: Acute Assessment and Plan: Date of Service 04/03/20 Ms. Kwan is a 35 yo F with history of anxiety who presented to the emergency department for evaluation of nausea, vomiting, and abdominal pain x 4 days. In the last 4 days, she has visited [facility], then our ED where she was discharged. She then presented to urgent care who referred her to [facility] ED where she was seen and left AMA. She re-presented to our ED with IV access still in and a blood pressure cuff on her arm from [facility]. She reported she has been vomiting with intense nausea for 4 days with associated diffuse abdominal pain. She reports she has never had these symptoms before. She reports hot showers and baths help her and that she has been practically living in her shower for the last 4 days to get some relief. She does report using marijuana multiple times per day for many years for treatment of anxiety. She was evaluated by GI, Dr Humphrey, and underwent EGD 04/02/20. EGD revealed gastritis, esophagitis, duodenitis without evidence of bleeding. She was treated with protonix and carafate for this. She was treated with several different antiemetics but only found relief with compazine. Hot showers helped. She was educated at length on the fact she may be suffering from cannabis hyperemesis syndrome. We discussed following up with her PCP as soon as possible to help guide her in treating her anxiety without marijuana. She was educated on cognitive behavioral therapy and establishing with a psychologist or psychiatrist. Ativan helped and she was prescribed a small amount of oral ativan to get her through to her follow up appointment. Her nausea and pain were improved day of discharge. She had tolerated a small amount of food without vomiting. She was hemodynamically stable for discharge 04/03/20 with instructions to follow up with Dr Humphrey in 2-3 weeks and with PCP as soon as possible. By history her symptoms seem consistent with either cannabis hyperemesis syndrome or possibly the onset of another cyclic vomiting syndrome. She has used marijuana daily for years. She only has relief from hot showers/baths. (2) Gastritis: Qualifiers: Gastritis type: unspecified gastritis Chronicity: unspecified Gastritis bleeding: without bleeding Qualified Code(s): K29.70 - Gastritis, unspecified, without bleeding Code(s): K29.70 - Gastritis, unspecified, without bleeding Status: Acute Assessment and Plan: EGD this afternoon by Dr Humphrey showed esophagitis, gastritis, and duodenitis. Protonix and carafate. (3) Acute hypokalemia: Code(s): E87.6 - Hypokalemia Status: Acute Assessment and Plan: K was low and replaced. (4) Marijuana abuse: Code(s): F12.10 - Cannabis abuse, uncomplicated Status: Acute Assessment and Plan: Uses marijuana multiple times daily; may be contributing to symptoms. She was educated on cessation to try to help with symptoms. (5) Anxiety: Code(s): F41.9 - Anxiety disorder, unspecified Status: Chronic Assessment and Plan: Noted she uses marijuana to help with anxiety. She is anxious and agitated, aggressive with staff. Relief with IV ativan. DS: Summary Time Spent with Patient Time attestation: Total time spent providing
== END 2020-04-03 17:35 | disposition home or self-care (01) ==
LOC: ANHED 04-02 01:06 → ANH3MEDSUR 04-02 01:13
PROVIDERS: Internal Medicine Gastroenterology; Physician Assistant; Admitting Provider Internal Medicine; Emergency Provider Emergency Medicine; Visit Provider Family Medicine
PROC: 0DJ08ZZ Inspection of Upper Intestinal Tract, Via Natural or Artificial Opening Endoscopic (ICD-10-PCS; CPT 43235; principal; 2020-04-02 13:15)
DX: R11.2 Nausea with vomiting, unspecified (principal); K22.10 Ulcer of esophagus without bleeding; K21.0 Gastro-esophageal reflux disease with esophagitis; K27.9 Peptic ulcer, site unspecified, unspecified as acute or chronic, without hemorrhage or perforation; K29.80 Duodenitis without bleeding; K29.70 Gastritis, unspecified, without bleeding; F12.10 Cannabis abuse, uncomplicated; E86.0 Dehydration; E87.6 Hypokalemia; F41.9 Anxiety disorder, unspecified
CPT/HCPCS: 43239; 36415; 74018; 74177; 80048; 80053; 80307; 81001; 81025; 83690; 83735; 85025; 87081; 88305; 96361; 96365; 96366; 96372; 96374; 96375; 96376; 99284; 99285; A9270; C9113; G0378; G0379; J0131; J0500; J0780; J1170; J1200; J2060; J2405; J2550; J2704; J2765; J3010; J3480; J7030; J7120; Q9967

== ENCOUNTER 2021-08-09 14:29 | Emergency (ER) | payer OTHER, SELFPAY ==
--- NOTE | ~2021-08-09 | CT_ITS ---
EXAMINATION: CT abdomen pelvis w con DATE: 08/09/2021 22:38 INDICATION: Upper abdominal pain. Nausea and vomiting. TECHNIQUE: Computed tomography (CT) of the abdomen and pelvis was performed with 100 cc Omnipaque 350 intravenous contrast. Automated exposure control and iterative reconstruction technique were employe d. Exam dose: 814.09 mGy-cm total exam DLP. COMPARISON: 04/01/2020 CT abdomen pelvis and KUB FINDINGS: The lung bases are clear of consolidation. Normal heart size. No pericardial or pleural eff usion. The liver, gallbladder, spleen, pancreas, bile ducts and pancreatic duct as well as adrenal glands ar e unremarkable. 2 cm right renal cyst. The kidneys are otherwise unremarkable. No urinary tract calculus or hydrouret eronephrosis. Normal caliber of the abdominal aorta. No intraperitoneal or retroperitoneal or pelvic mass lesion or adenopathy or ascites is detected. The uterus, adnexal areas and urinary bladder are unremarkable. Normal appendix. No bowel obstruction, bowel wall thickening, pneumatosis or intraperitoneal free air . Small fat-containing umbilical hernia. Bilateral L5 pars interarticularis defects with slight grade 1 anterolisthesis at L5-S1. IMPRESSION: Bilateral L5 pars interarticularis defects with slight grade 1 anterolisthesis L5-S1 2 cm right renal cyst Reviewed, dictated and finalized at [facility]. Reviewed, dictated and finalized at [facility]. [employer] IMPRESSION: Bilateral L5 pars interarticularis defects with slight grade 1 ant erolisthesis L5-S1 2 cm right renal cyst
[2021-08-09 14:40] VITALS: BP 156/91; PULSE 89; RESP 28; TEMP 37.2; O2SAT 100
--- NOTE | 2021-08-09 14:58 | PC.NURSE ---
security @ desk stating pt came up to him and stated she is now throwing up blood.extrusion supervisor Notified.
[2021-08-09 18:41] VITALS: BP 164/79; PULSE 51; RESP 18; TEMP 37.1; O2SAT 100
--- NOTE | 2021-08-09 20:16 | ED.GENADULT ---
HPI - General Adult General Chief complaint: Upper Respiratory Infection Stated complaint: SOB Time Seen by Provider: 08/09/21 20:06 Source: patient and RN notes reviewed Limitations: no limitations History of Present Illness HPI narrative: 36-year-old female that is Covid positive presents to the emergency department complaining of nausea and vomiting today. Patient tested positive for Covid on 08/05. Patient states that today she began developing nausea and vomiting. Patient does report upper abdominal pain. Patient denies any shortness of breath. Patient's primary complaint is nausea and vomiting. Patient did have a section and 2006. Patient denies any other significant past medical history. Patient is not vaccinated for Covid Related Data Home Medications Medication Instructions Recorded Confirmed albuterol sulfate 2 puff INHALATION Q4-6H PRN 04/02/20 04/02/20 loratadine [Claritin] 10 mg PO DAILY PRN 04/02/20 04/02/20 Allergies Allergy/AdvReac Type Severity Reaction Status Date / Time latex Allergy Rash Verified 08/09/21 21:14 morphine Allergy Rash Verified 08/09/21 21:14 Penicillins Allergy Rash Verified 08/09/21 21:14 Review of Systems Review of Systems: CONSTITUTIONAL: Denies fever, chills, or sweats. EYES: Denies visual changes, redness, or discharge. ENT: Denies rhinorrhea, congestion, sore throat, or otalgia. CARDIOVASCULAR: Denies chest pain, palpitations, or edema. RESPIRATORY: Denies cough or dyspnea. GASTROINTESTINAL: Upper abdominal pain with associated nausea and vomiting GENITOURINARY: Denies dysuria or hematuria. SKIN: Denies rash or itching. MUSCULOSKELETAL: Denies back pain, joint pain, or myalgia. NEUROLOGIC: Denies headache, numbness, or weakness. PSYCHIATRIC: Denies anxiety or depression. [facility] Past Medical History Medical History (Updated 08/16/21 @ 13:25 by Eddie Lopez MD) Erosive esophagitis Irritable bowel syndrome Marijuana abuse Peptic ulcer disease Surgical History Surgical History (Updated 04/02/20 @ 10:03 by Corry Singleton PA-C) History of 2005 Family History Family History Other Patient denies significant medical history Social History Social History (Updated 04/02/20 @ 10:04 by RITESH Cantor Social History: Ms. Kwan lives at home in [place] with her sister and sister's daughter. She is not working currently. She reports she rarely uses alcohol less than once per week. She smokes marijuana multiple times daily for the last several years. She does not smoke cigarettes. She does not have a primary care provider. She is full code status. Smoking status: Never smoker Alcohol intake: current Substance use: current Substance use type: marijuana Gender identity (if verbalized by the patient): Female Spiritual care concerns: No Exam Narrative: APPEARANCE: Well appearing, no pain in distress, well-nourished. HEAD: normocephalic, atraumatic. NECK: Supple. No adenopathy, no masses. RESPIRATORY: Airway patent, respirations nonlabored. Clear to auscultation bilaterally, no rales, rhonchi, wheezing. CARDIOVASCULAR: Regular rate and rhythm without murmurs rubs or gallops. ABDOMINAL: Soft, nondistended, normal bowel sounds, upper abdominal tenderness to palpation. MUSCULOSKELETAL: Moves all extremities. Strength/ROM intact, No edema, No calf tenderness. NEURO: Alert. Cranial nerves II through XII intact. Good gait. Good coordination SKIN: Warm, dry. Normal Color PSYCHIATRIC: Normal affect/mood. Course Course Emergency Course: Patient was updated on plan for treatment with IV fluids, antiemetics. Labs pending. Reevaluation(s) Reevaluation #1: Patient states she does feel improved with treatment. Patient is resting comfortably in the room. Patient does admit to daily THC use. Patient states that she is currently only having nausea vomiting at this time as
[2021-08-09 20:30] VITALS: BP 167/91; PULSE 62; RESP 20; O2SAT 100
[2021-08-09] MEDS: SODIUM CHLORIDE 0.9% IV 1,000 ML 999 ML IV CONT ×2 (20:35→21:23)
[2021-08-09] MEDS: ONDANSETRON INJ 4 MG/2 ML VIAL IV PUSH (20:35)
[2021-08-09 20:49] LABS: Basophils Percent Auto 0.2 % (0.2-1.2); Hematocrit 37.1 % (37.0-47.0); Hemoglobin 13.1 g/dL (12.0-15.0); Immature Granulocyte Absolute 0.09 K/mm3 (0.00-0.031); Immature Granulocyte Percent A 0.5 % (0-0.5); Lymphocytes Absolute Auto 1.83 K/mm3 (0.9-3.2); Mean Corpuscular HGB Conc 35.3 g/dl (32-36); Mean Corpuscular Hemoglobin 31.3 pg (26-34); Mean Corpuscular Volume 88.8 fl (80-100); Mean Platelet Volume 9.9 fl (7.4-10.4); Monocytes Absolute Auto 1.3 K/mm3 (0.1-0.6); Monocytes Percent Auto 6.8 % (2.6-8.5); Neutrophils Absolute Auto 15.1 K/mm3 (1.3-6.7); Neutrophils Percent Auto 82.5 % (45.5-73.1); Platelet Count Result 325 k/mm3 (150-375); Red Blood Count 4.18 M/mm3 (4.2-5.4); Red Cell Distribution Width 11.9 % (11.5-14.5); White Blood Count 18.3 K/mm3 (4.5-10.0)
[2021-08-09 20:54] LABS: Add Urine Microscopic? YES; Appearance Urine Cloudy (Clear); Bacteria Urine Trace /hpf; Bilirubin Urine Negative (Negative); Blood Urine 1+ (Negative); Color Urine Yellow (Yellow); Glucose Urine UA Negative (Negative); Ketones Urine Negative (Negative); Leukocyte Esterase Ur Negative LEU/UL (Negative); Mucus Urine Few /lpf; Nitrate Urine Negative (Negative); Protein Urine 1+ mg/dL (Negative); Specific Grav Ur 1.029 (1.001-1.035); Squamous Epithelial Cell Urine Occasional /hpf (Few); Urobilinogen Urine Negative mg/dL (<2.0); WBC Urine 0-3 /hpf
[2021-08-09 21:02] LABS: Alanine Aminotransferase 23 U/L (4-35); Albumin Level 5.1 g/dL (3.5-5.1); Alkaline Phosphatase 85 U/L (38-126); Anion Gap 18 mmol/L (8-16); Aspartate Amino Transferase 42 U/L (14-36); Blood Urea Nitrogen 27 mg/dL (7-17); Carbon Dioxide 20 mmol/L (22-30); Chloride 99 mmol/L (98-107); Estimated CRCL calculation 67 ml/min; Estimated Glomerular Filt Rate 51; Glucose 137 mg/dL (65-110); Lipase 57 U/L (23-300); Potassium 2.9 mmol/L (3.4-5.0); Sodium 137 mmol/L (137-145)
[2021-08-09 21:05] LABS: Lactic Acid Reflex 2.1 mmol/L (0.7-2.1)
[2021-08-09] MEDS: METOCLOPRAMIDE HCL INJ 10 MG/2 ML VIAL IV PUSH (21:15)
[2021-08-09] MEDS: fentaNYL CITRATE INJ (*CRX) 100 MCG/2 ML VIAL 50 MCG IV PUSH (21:16)
[2021-08-09] MEDS: PANTOPRAZOLE SODIUM IV 40 MG VIAL IV PUSH (21:19)
[2021-08-09 21:22] VITALS: TEMP 37.3
[2021-08-09 21:46] VITALS: BP 174/101; PULSE 76; RESP 18; O2SAT 100
[2021-08-09] MEDS: KCL 20 MEQ/D5/0.45% SOD CHL 1,000 ML 125 ML IV CONT (21:46)
[2021-08-09 23:09] VITALS: BP 142/86; PULSE 73; RESP 20
[2021-08-09] MEDS: HYDROmorphone HCL INJ (*CRX) 1 MG/ML SYR IV PUSH (23:11)
[2021-08-09 23:45] LABS: Reflex Lactic Acid Yes or No Add Lactic
[2021-08-10] MEDS: POTASSIUM CHLORIDE 20 MEQ TABLET 40 MEQ PO (00:14)
[2021-08-10 00:21] VITALS: BP 125/64; PULSE 86; RESP 18; O2SAT 98
== END 2021-08-10 00:23 | disposition home or self-care (01) ==
PROVIDERS: Emergency Provider Emergency Medicine
DX: U07.1 COVID-19 (principal); R11.2 Nausea with vomiting, unspecified; K22.10 Ulcer of esophagus without bleeding; K58.9 Irritable bowel syndrome, unspecified; Z87.11 Personal history of peptic ulcer disease
CPT/HCPCS: 36415; 74177; 80053; 81001; 81025; 83605; 83690; 85025; 87804; 96361; 96365; 96366; 96375; 99284; A9270; C9113; J1170; J2405; J2765; J3010; J3480; J7030; Q9967